=== PATIENT | male | born 1970 | race Caucasian/White ===

== ENCOUNTER 2023-05-26 12:50 | Emergency (ER) | payer BC, SELFPAY ==
[2023-05-26 13:08] VITALS: BP 150/81; PULSE 85; RESP 18; TEMP 37.1; O2SAT 97
--- NOTE | 2023-05-26 13:34 | ED.EAR ---
HPI - Ear Problem General Chief complaint: Ear Stated complaint: Left Ear Clogged Time Seen by Provider: 05/26/23 13:34 Source: patient Mode of arrival: ambulatory Limitations: no limitations History of Present Illness HPI Narrative: 52-year-old male presented for complaint of left ear clogged for over one year. He states the symptoms are worse for about 9 days, since returning on a flight. States he can hear himself talk and the sound of his teeth touching is louder in the left. Denies ear pain, tinnitus, drainage, dizziness, n/v/d/f/c. No meds for symptoms. MD Complaint: ear pain Related Data Home Medications Medication Instructions Recorded Confirmed No Home Medications 05/26/23 05/26/23 Allergies Allergy/AdvReac Type Severity Reaction Status Date / Time No Known Allergies Allergy Verified 05/26/23 13:16 Review of Systems Review of Systems: CONSTITUTIONAL: Denies malaise, chills, or fever. EYES: Denies visual changes, redness, or discharge. ENT: Denies rhinorrhea, congestion, sinus pain, and sore throat. Reports ear clogged CARDIOVASCULAR: Denies chest pain, palpitations, or edema. RESPIRATORY: Denies cough or dyspnea. GASTROINTESTINAL: Denies abdominal pain, nausea, vomiting, diarrhea SKIN: Denies rash or itching. MUSCULOSKELETAL: Denies myalgia. NEUROLOGIC: Denies headache. All systems reviewed & are unremarkable except as noted in HPI and below PMFSH Past Medical History Medical History HLD (hyperlipidemia) Family History Family History Mother , in 2019 Family history of malignant neoplasm Social History Social History Social History: Patient drinks one Coke daily, and exercises 3 times per week. Smoking status: Former smoker Second hand tobacco smoke exposure: Yes Alcohol intake: current Alcohol use details: Patient drinks alcohol socially Substance use: never Substance use type: does not use Gender identity (if verbalized by the patient): Male Comments At time of signature, agree with nursing past medical, surgical, social and family history. There is no relevant family history pertinent to the presenting complaint Exam Narrative: GENERAL: Well-appearing EYES: conjunctivae clear ENT: Nares clear. Mucous membranes moist. TM pearly jean with dull light reflex bilaterally, mild left clear effusion; no tragal tenderness. Oropharynx not erythematous without lesions. NECK: Supple. No lymphadenopathy CHEST: Clear to auscultation, breath sounds equal. No wheezing, rhonchi, rales, or stridor. No respiratory distress, speaks in full sentences. HEART: Regular rate and rhythm. No murmur heard. SKIN: Warm, dry, no rash. NEURO: Alert and oriented x3. PSYCH: Normal mood and affect Course Course Emergency Course: Patient is aware of diagnosis, understands and agrees to treatment plan. Anticipatory guidance given. Patient agrees to follow-up as directed and is aware of reasons to seek care at the emergency department. Portions of this record may have been created with voice recognition software Level of Care: Express Care Visit Vital Signs Vital signs: Vital Signs Temperature 98.8 F 05/26/23 13:08 Pulse Rate 85 05/26/23 13:08 Respiratory Rate 18 05/26/23 13:08 Blood Pressure 150/81 H 05/26/23 13:08 Pulse Oximetry 97 05/26/23 13:08 Oxygen Delivery Room Air 05/26/23 13:08 Temperature 98.8 F 05/26/23 13:08 Pulse Rate 85 05/26/23 13:08 Respiratory Rate 18 05/26/23 13:08 Blood Pressure 150/81 H 05/26/23 13:08 Pulse Oximetry 97 05/26/23 13:08 Oxygen Delivery Room Air 05/26/23 13:08 Reviewed Medical Decision Making MDM Narrative Medical decision making narrative: Discussed physical exam findings c/w ETD. Provided with ENT. Advised supportive m
== END 2023-05-26 13:52 | disposition home or self-care (01) ==
PROVIDERS: Emergency Provider Nurse Practitioner Family; PCP Emergency Medicine
DX: H65.02 Acute serous otitis media, left ear (principal); E78.5 Hyperlipidemia, unspecified; Z87.891 Personal history of nicotine dependence
CPT/HCPCS: 99211; G0463

== ENCOUNTER 2024-03-07 16:20 | Outpatient (CLI) | payer BC, SELFPAY ==
--- NOTE | ~2024-03-07 | XR_ITS ---
XR ankle RT min 3V 03/07/2024 18:00 Indication: Right ankle pain Procedure: 4 views right ankle Comparison: No prior studies for comparison. Findings: No fracture, subluxation or dislocation. There is small degenerative calcaneal enthesophyte . There is mild polyarticular osteoarthritis of the midfoot. Mild diffuse soft tissue swelling. 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 Reviewed, dictated and finalized at location B. 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
== END 2024-03-07 16:21 | disposition home or self-care (01) ==
PROVIDERS: PCP Chiropractor Rehabilitation; Visit Provider Chiropractor Rehabilitation
DX: M25.571 Pain in right ankle and joints of right foot (principal)
CPT/HCPCS: 73610

== ENCOUNTER 2024-03-28 07:15 | Outpatient (RCR) | payer BC, SELFPAY ==
[2023-12-18 08:41] VITALS: BP 104/70; PULSE 81; RESP 16; O2SAT 97
[2023-12-18 09:01] VITALS: PULSE 81
== END 2024-03-28 08:49 | disposition home or self-care (01) ==
LOC: ANHCPREHAB 07:15
PROVIDERS: PCP Emergency Medicine
DX: I25.2 Old myocardial infarction (principal)
CPT/HCPCS: 93798